=== PATIENT | female | born 1955 | race Caucasian/White ===

== ENCOUNTER 2022-09-10 14:31 | Inpatient (IN) | payer OTHER ==
[~2022-09-10] VITALS: Ht 167.6 cm; Wt 153.8 kg
[2022-09-10 14:43] VITALS: BP_SYST 118; PULSE 17; RESP 17; TEMP 97.3; O2SAT 98
[2022-09-10] MEDS ORDERED: cefTRIAXone 1 GM IVPB PREMIX 50 ML IV ONE (15:00)
[2022-09-10 15:48] LABS: BASOPHILS % (AUTO) 0.2 % (0.0-2.0); EOSINOPHILS % (AUTO) 0.3 % (0.0-4.0); HEMATOCRIT 32.5 % (36-48); HEMOGLOBIN 10.5 g/dL (12.0-16.0); LYMPHOCYTES # (AUTO) 2.1 K/uL (1.0-5.5); LYMPHOCYTES % (AUTO) 20.3 % (20.5-51.5); MEAN CORPUSCULAR HEMOGLOBIN 28 pg (27-31); MEAN CORPUSCULAR HGB CONC 32 % (32-36); MEAN CORPUSCULAR VOLUME 88 fL (79.0-98.0); MONOCYTES # (AUTO) 0.7 K/uL (0.0-1.0); MONOCYTES % (AUTO) 7.1 % (1.7-9.3); NEUTROPHILS # (AUTO) 7.4 K/uL (1.8-7.7); NEUTROPHILS % (AUTO) 72.1 % (40.0-70.0); PLATELET COUNT (AUTO) 171 K/uL (130-430); RED BLOOD CELL COUNT(AUTO) 3.71 MIL/uL (4.2-6.2); RED CELL DISTRIBUTION WIDTH 14.8 % (9.0-15.0); WHITE BLOOD COUNT (AUTO) 10.3 K/uL (4.8-10.8)
[2022-09-10 15:54] LABS: ANION GAP 8 (5-15); CARBON DIOXIDE 25 mmol/L (23-29); CHLORIDE 101 mmol/L (98-107); CREATININE 3.24 mg/dL (0.55-1.30); GFR AFRICAN AMERICAN 18 mL/min (>90); GLUCOSE 127 mg/dL (74-106); POTASSIUM 4.7 mmol/L (3.5-5.1); SODIUM SERUM 134 mmol/L (136-145); UREA NITROGEN, BLOOD 46 mg/dL (8-21)
[2022-09-10 15:55] LABS: GFR NON AFRICAN-AMERICAN 15 mL/min (>90)
[2022-09-10 16:11] LABS: ALANINE AMINOTRANSFERASE 18 U/L (12-78); ALBUMIN 3.5 g/dL (3.4-4.8); ASPARTATE AMINOTRANSFERASE 34 U/L (10-37); CREATINE KINASE, TOTAL 1285 U/L (26-192); TOTAL BILIRUBIN 0.6 mg/dL (0.0-1.0); TOTAL PROTEIN, SERUM 7.4 g/dL (6.4-8.3)
[2022-09-10] MEDS ORDERED: NS 1000 ML IV.SOLN IV ONE (16:45)
[2022-09-10 16:52] LABS: CKMB RELATIVE INDEX 0.8 (0.0-2.9); CREATINE KINASE MB 10.9 ng/mL (0-3.6)
[2022-09-10 16:58] LABS: BILIRUBIN,URINE NEGATIVE (NEGATIVE); BLOOD, URINE 1+ (NEGATIVE); CLARITY/URINE CLEAR (CLEAR); COLOR,URINE YELLOW (YELLOW); GLUCOSE,URINE NEGATIVE (NEGATIVE); KETONES,URINE NEGATIVE (NEGATIVE); LEUKOCYTE ESTERASE ,URINE NEGATIVE (NEGATIVE); NITRITE, URINE NEGATIVE (NEGATIVE); PH,URINE 5.5 (5.0-8.0); PROTEIN URINE NEGATIVE (NEGATIVE); UROBILINOGEN,URINE 0.2 (0.2-1.0)
[2022-09-10 17:05] LABS: BACTERIA,URINE RARE /HPF (None Seen); MUCUS,URINE None Seen /LPF (None Seen); RBC,URINE NONE SEEN /HPF (0-3); WBC,URINE 0-3 /HPF (0-3)
[2022-09-10] MEDS ORDERED: D5/0.45 NS 1,000 ML IV ONE (17:15)
[2022-09-10] MEDS ORDERED: LORazepam 2 MG/ML VIAL IVP PRN (18:00)
[2022-09-10] MEDS ORDERED: HYDROcodone/ACETAMIN 5-325 MG TAB (NORCO/ VICODIN) PO PRN (18:00)
[2022-09-10] MEDS ORDERED: ACETAMINOPHEN 325 MG TABLET PO PRN (18:00)
[2022-09-10] MEDS ORDERED: ONDANSETRON HCL 4 MG/2 ML VIAL IVP PRN (18:00)
[2022-09-10] MEDS ORDERED: NALOXONE HCL 0.4 MG/ML AMP (NARCAN) IVP PRN ×2 (18:00)
[2022-09-10 20:20] VITALS: BP_SYST 129; PULSE 70; RESP 20; TEMP 97.6; O2SAT 94
[2022-09-10 22:00] VITALS: BP_SYST 145; PULSE 82; RESP 20; TEMP 97.6; O2SAT 94
[2022-09-10] MEDS: HYDROcodone/ACETAMIN 10-325 MG TAB PO PRN (22:10)
[2022-09-11] VITALS (7 sets, daily range): BP systolic 111–164; PULSE 55–75; RESP 17–20; TEMP 96.8–98.3; O2SAT 96–98
[2022-09-11] MEDS: HYDROcodone/ACETAMIN 10-325 MG TAB PO PRN ×4 (05:03→23:35)
[2022-09-11 06:43] LABS: CALCIUM 9.1 mg/dL (8.4-11.0); CREATININE 2.38 mg/dL (0.55-1.30); PHOSPHORUS 4.1 mg/dL (2.7-4.5); POTASSIUM 4.7 mmol/L (3.5-5.1)
[2022-09-11 07:14] LABS: BASOPHILS % (AUTO) 0.2 % (0.0-2.0); EOSINOPHILS # (AUTO) 0.1 K/uL (0.0-0.4); HEMATOCRIT 32.7 % (36-48); HEMOGLOBIN 10.9 g/dL (12.0-16.0); LYMPHOCYTES # (AUTO) 2.8 K/uL (1.0-5.5); LYMPHOCYTES % (AUTO) 27.9 % (20.5-51.5); MEAN CORPUSCULAR HEMOGLOBIN 29 pg (27-31); MEAN CORPUSCULAR HGB CONC 33 % (32-36); MEAN CORPUSCULAR VOLUME 88 fL (79.0-98.0); MONOCYTES # (AUTO) 0.8 K/uL (0.0-1.0); MONOCYTES % (AUTO) 7.4 % (1.7-9.3); NEUTROPHILS # (AUTO) 6.4 K/uL (1.8-7.7); NEUTROPHILS % (AUTO) 63.5 % (40.0-70.0); PLATELET COUNT (AUTO) 181 K/uL (130-430); RED BLOOD CELL COUNT(AUTO) 3.71 MIL/uL (4.2-6.2); RED CELL DISTRIBUTION WIDTH 14.4 % (9.0-15.0); WHITE BLOOD COUNT (AUTO) 10.2 K/uL (4.8-10.8)
[2022-09-11] MEDS ORDERED: HYDR-3927 PO (16:52)
[2022-09-11] MEDS ORDERED: LEVO125T8 PO (16:52)
[2022-09-11] MEDS ORDERED: ALPR0.5T8 (16:52)
[2022-09-11] MEDS ORDERED: ASPI-1393 PO (16:52)
[2022-09-11] MEDS ORDERED: LISI10TA29 PO (16:52)
[2022-09-11] MEDS ORDERED: LORA10CA PO (16:52)
[2022-09-11] MEDS ORDERED: BACL10TA PO (16:52)
[2022-09-11] MEDS ORDERED: ALOG25TA PO (16:52)
[2022-09-11] MEDS ORDERED: SIMV-341 PO (16:52)
[2022-09-11] MEDS ORDERED: HYDR-3921 PO (16:52)
[2022-09-11] MEDS ORDERED: NEU300 PO (16:52)
[2022-09-11] MEDS ORDERED: LORA5SOL60 PO (16:52)
[2022-09-11] MEDS ORDERED: GLIP10TA21 PO (16:52)
[2022-09-11] MEDS ORDERED: HYDR-4037 PO (16:52)
[2022-09-11] MEDS ORDERED: FURO10SO PO (16:52)
[2022-09-11] MEDS ORDERED: VITD2000 PO (16:54)
[2022-09-11] MEDS: NACL 0.9% 1,000 ML IV SCH (20:30)
[2022-09-12 00:18] VITALS: BP_SYST 163; PULSE 69; RESP 19; TEMP 98
[2022-09-12 01:35] VITALS: O2SAT 97
[2022-09-12] MEDS: HYDROcodone/ACETAMIN 10-325 MG TAB PO PRN ×4 (04:42→21:34)
[2022-09-12 05:58] LABS: BASOPHILS % (AUTO) 0.2 % (0.0-2.0); EOSINOPHILS # (AUTO) 0.2 K/uL (0.0-0.4); EOSINOPHILS % (AUTO) 1.9 % (0.0-4.0); HEMATOCRIT 29.7 % (36-48); HEMOGLOBIN 9.7 g/dL (12.0-16.0); LYMPHOCYTES # (AUTO) 3.1 K/uL (1.0-5.5); LYMPHOCYTES % (AUTO) 34.6 % (20.5-51.5); MEAN CORPUSCULAR HEMOGLOBIN 29 pg (27-31); MEAN CORPUSCULAR HGB CONC 33 % (32-36); MEAN CORPUSCULAR VOLUME 88 fL (79.0-98.0); MONOCYTES # (AUTO) 0.7 K/uL (0.0-1.0); MONOCYTES % (AUTO) 8.2 % (1.7-9.3); NEUTROPHILS # (AUTO) 4.9 K/uL (1.8-7.7); NEUTROPHILS % (AUTO) 55.1 % (40.0-70.0); PLATELET COUNT (AUTO) 157 K/uL (130-430); RED BLOOD CELL COUNT(AUTO) 3.37 MIL/uL (4.2-6.2); WHITE BLOOD COUNT (AUTO) 8.9 K/uL (4.8-10.8)
[2022-09-12 06:38] LABS: ALBUMIN 2.9 g/dL (3.4-4.8); CALCIUM 8.6 mg/dL (8.4-11.0); CREATININE 1.82 mg/dL (0.55-1.30); PHOSPHORUS 3.2 mg/dL (2.7-4.5); POTASSIUM 4.8 mmol/L (3.5-5.1); TOTAL BILIRUBIN 0.4 mg/dL (0.0-1.0); TOTAL PROTEIN, SERUM 6.7 g/dL (6.4-8.3)
[2022-09-12 06:40] LABS: TOTAL IRON BIND. CAPACITY 269 ug/dL (250-450)
[2022-09-12 07:30] LABS: CKMB RELATIVE INDEX 0.5 (0.0-2.9); CREATINE KINASE MB 2.6 ng/mL (0-3.6)
[2022-09-12 11:13] VITALS: BP_SYST 150; PULSE 76; RESP 19; TEMP 97.7; O2SAT 96
[2022-09-12] MEDS: NACL 0.9% 1,000 ML IV SCH (11:21)
[2022-09-12] MEDS ORDERED: D5W 1,000 ML IV PRN (12:15)
[2022-09-12] MEDS ORDERED: DEXTROSE 50% JECT 50 ML DISP.SYRIN IVP PRN (12:15)
[2022-09-12] MEDS ORDERED: GLUCOSE (DEXTROSE) ORAL GEL -Adults PO PRN (12:15)
[2022-09-12] MEDS ORDERED: INSULIN LISPRO SLIDING SCALE 100 UNITS/ML, 3 ML VIAL (humaLOG) SUBCUT PRN (12:15)
[2022-09-12] MEDS: D5/0.45 NS 1,000 ML IV SCH ×2 (17:29→21:07)
[2022-09-12 17:34] VITALS: BP_SYST 137; PULSE 71; RESP 19; TEMP 98; O2SAT 96
[2022-09-12 20:00] VITALS: BP_SYST 150; PULSE 62; RESP 17; TEMP 98.3; O2SAT 96
[2022-09-13] VITALS (7 sets, daily range): BP systolic 146–159; PULSE 62–66; RESP 16–19; TEMP 96.9–98; O2SAT 96–100
[2022-09-13 04:53] LABS: BASOPHILS % (AUTO) 0.2 % (0.0-2.0); EOSINOPHILS # (AUTO) 0.1 K/uL (0.0-0.4); EOSINOPHILS % (AUTO) 1.6 % (0.0-4.0); HEMATOCRIT 31.4 % (36-48); HEMOGLOBIN 10.4 g/dL (12.0-16.0); LYMPHOCYTES # (AUTO) 3.2 K/uL (1.0-5.5); LYMPHOCYTES % (AUTO) 36.5 % (20.5-51.5); MEAN CORPUSCULAR HEMOGLOBIN 29 pg (27-31); MEAN CORPUSCULAR HGB CONC 33 % (32-36); MEAN CORPUSCULAR VOLUME 88 fL (79.0-98.0); MONOCYTES # (AUTO) 0.8 K/uL (0.0-1.0); NEUTROPHILS # (AUTO) 4.6 K/uL (1.8-7.7); NEUTROPHILS % (AUTO) 52.7 % (40.0-70.0); PLATELET COUNT (AUTO) 158 K/uL (130-430); RED BLOOD CELL COUNT(AUTO) 3.59 MIL/uL (4.2-6.2); RED CELL DISTRIBUTION WIDTH 14.5 % (9.0-15.0); WHITE BLOOD COUNT (AUTO) 8.8 K/uL (4.8-10.8)
[2022-09-13 06:37] LABS: ALBUMIN 3.1 g/dL (3.4-4.8); CALCIUM 8.9 mg/dL (8.4-11.0); CREATININE 1.75 mg/dL (0.55-1.30); PHOSPHORUS 3.5 mg/dL (2.7-4.5); POTASSIUM 4.7 mmol/L (3.5-5.1); TOTAL BILIRUBIN 0.3 mg/dL (0.0-1.0); TOTAL PROTEIN, SERUM 7.2 g/dL (6.4-8.3)
[2022-09-13 07:40] LABS: CKMB RELATIVE INDEX 0.5 (0.0-2.9); CREATINE KINASE MB 1.8 ng/mL (0-3.6)
[2022-09-13] MEDS: D5/0.45 NS 1,000 ML IV SCH ×2 (16:17→18:35)
== END 2022-09-13 20:30 | DRG 683 ==
LOC: SED 14:31 → SMU 17:02
PROVIDERS: ADMIT Preventive Medicine Preventive Medicine/Occupational Environmental Medicine; ATTEND Preventive Medicine Preventive Medicine/Occupational Environmental Medicine
DX: N17.0 Acute kidney failure with tubular necrosis (principal); E87.1 Hypo-osmolality and hyponatremia; M62.82 Rhabdomyolysis; N18.32 Chronic kidney disease, stage 3b; E88.09 Other disorders of plasma-protein metabolism, not elsewhere classified; E11.65 Type 2 diabetes mellitus with hyperglycemia; D63.1 Anemia in chronic kidney disease; E78.5 Hyperlipidemia, unspecified; I12.9 Hypertensive chronic kidney disease with stage 1 through stage 4 chronic kidney disease, or unspecified chronic kidney disease; E11.22 Type 2 diabetes mellitus with diabetic chronic kidney disease; Z20.822 Contact with and (suspected) exposure to COVID-19
CPT/HCPCS: 36415; 71045; 76770; 80048; 80053; 81000; 82550; 82553; 82962; 83540; 83550; 83605; 83735; 83880; 84100; 84484; 85025; 87040; 87086; 93005; 96361; 96375; 97110-GP; 97530-GP; 99285; J0696; J2060; J2405; J7030